=== PATIENT | male | born 1935 | race Caucasian/White ===

== ENCOUNTER → 2017-01-24 09:08 | Outpatient (CLI) | payer MEDICARE, BC ==
[2016-03-18 09:29] VITALS: BMI 27.1
[~2017-01-24 09:08] MED LIST: ALEVE220 MG PO; APAP325 MG PO; BAYER CHEWABLE81 MG PO; CATAPRES0.1 MG PO; HYDROCODON-ACE1 EAC3 PO; NEURONTIN 300300 MG PO; NORVASC5 MG PO; PRILOSEC20 MG PO; PROTONIX40 MG PO; TAPAZOLE 5 MG TA5 MG PO; TENORMIN25 MG PO; XALATAN 0.0052.5 ML EACH EYE
[2017-01-24 10:02] LABS: CREATININE - SERUM 1.3 mg/dL (0.6-1.3)
== END | disposition home or self-care (01) ==
LOC: D.LAB 09:08 → D.CT 10:30
PROVIDERS: Family Medicine Adult Medicine
DX: H53.10 Unspecified subjective visual disturbances (principal)

== ENCOUNTER 2017-08-15 06:47 | Emergency (ER) | payer MEDICARE, BC ==
[2016-03-18 09:29] VITALS: BMI 27.1
== END 2017-08-15 08:54 | disposition home or self-care (01) ==
LOC: D.ER 06:47
DX: S16.1XXA Strain of muscle, fascia and tendon at neck level, initial encounter (principal); X58.XXXA Exposure to other specified factors, initial encounter; Y93.K1 Activity, walking an animal; Y92.019 Unspecified place in single-family (private) house as the place of occurrence of the external cause; S09.90XA Unspecified injury of head, initial encounter; S02.2XXA Fracture of nasal bones, initial encounter for closed fracture; S02.401A Maxillary fracture, unspecified side, initial encounter for closed fracture

== ENCOUNTER → 2019-07-03 08:30 | Outpatient (CLI) | payer MEDICARE, BC ==
[2016-03-18 09:29] VITALS: BMI 27.1
== END | disposition home or self-care (01) ==
LOC: D.RAD 08:30
PROVIDERS: ATTEND Internal Medicine Gastroenterology
DX: K59.00 Constipation, unspecified (principal); R10.31 Right lower quadrant pain